=== PATIENT | female | born 1975 | race Caucasian/White ===

== ENCOUNTER 2017-03-07 11:41 | Emergency (ER) | payer OTHER ==
[2017-03-07] MEDS ORDERED: SUBLIMAZE 100 MCG/2 ML IV ONE (12:12)
[2017-03-07] MEDS ORDERED: TORAdol 30 mg Injection IV ONE (12:12)
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
[2017-03-07] MEDS ORDERED: TORAdol 30 mg Injection ONE (12:28)
[2017-03-07] MEDS ORDERED: SUBLIMAZE 100 MCG/2 ML ONE (12:28)
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
[2017-03-07 14:43] VITALS: BP 144/68; PULSE 77; O2SAT 98
== END 2017-03-07 14:42 | disposition home or self-care (01) ==
LOC: ED 11:41
DX: S00.83XA Contusion of other part of head, initial encounter (principal); S10.93XA Contusion of unspecified part of neck, initial encounter; Y04.2XXA Assault by strike against or bumped into by another person, initial encounter
CPT/HCPCS: 36000; 70486; 70491; 71010; 84703; 99283; 99284; J1885; J3010

== ENCOUNTER 2017-03-16 15:31 | Emergency (ER) | payer OTHER ==
[2017-03-16] MEDS ORDERED: PROVENTIL 2.5 MG/3 ML NEB IH ONE ×2 (15:44→15:45)
[2017-03-16] MEDS ORDERED: NORCO 5/325 MG PO ONE (15:45)
[2017-03-16] MEDS ORDERED: NORCO 5/325 MG ONE (15:55)
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
[2017-03-16 16:29] VITALS: BP 150/87; PULSE 76; O2SAT 97
--- NOTE | 2017-03-16 21:56 | XRAY ---
Indication: Left-sided pain following fall one week ago. Comparison: March 07, 2017. PA/lateral chest again demonstrates normal heart and lungs with incidental right apical calcified granuloma. Bony thorax intact.
== END 2017-03-16 16:22 | disposition home or self-care (01) ==
LOC: ED 15:31
DX: S20.02XA Contusion of left breast, initial encounter (principal); W01.0XXA Fall on same level from slipping, tripping and stumbling without subsequent striking against object, initial encounter
CPT/HCPCS: 71020; 94640; 99283; A9270-GY

== ENCOUNTER 2017-05-12 19:57 | Emergency (ER) | payer OTHER ==
[2017-05-12] MEDS ORDERED: Sodium Chloride 0.9% 1000 ML 1,000 ML IV STA (20:42)
[2017-05-12] MEDS ORDERED: Phenergan 25 MG INJ IV ONE (20:42)
[2017-05-12] MEDS ORDERED: Hydromorphone 1 mg/ml Ampule IV ONE ×2 (20:42→22:47)
--- NOTE | 2017-05-12 20:48 | ERPHSYRPT ---
- History of Present Illness Time Seen by Provider: 05/12/17 20:37 Historian: patient Exam Limitations: no limitations Physician History: FOR THE PAST 5 DAYS PT HAS HAD CONSTANT SHARP/THROBBING LOW BACK PAIN, LOWER ABDOMINAL PAIN AND DYSURIA. PT VOMITED X1 LAST NIGHT AND STARTED WITH A SORE THROAT YESTERDAY. LAST BM WAS YESTERDAY & WNL. Allergies/Adverse Reactions: No Known Drug Allergies Allergy (Verified 03/16/17 15:38) Home Medications: No Home Meds [No Home Meds] 1 ea UD 03/16/17 [History] Hx Tetanus, Diphtheria Vaccination/Date Given: Yes Hx Influenza Vaccination/Date Given: No Hx Pneumococcal Vaccination/Date Given: No - Review of Systems Ears, Nose, & Throat: Throat Pain Abdominal/Gastrointestinal: Abdominal Pain, Vomiting Genitourinary Symptoms: Dysuria Musculoskeletal: Back Pain All Other Systems: Reviewed and Negative - Past Medical History Pertinent Past Medical History: Yes Female Reproductive Disorders: Other - Past Surgical History Past Surgical History: No Female Surgical History: Section, Tubal Ligation, Other Other Surgical History: lap exploratory - Social History Smoking Status: Never smoker Exposure to second hand smoke: Yes Drug Use: none Patient Lives Alone: No - Nursing Vital Signs Nursing Vital Signs: Initial Vital Signs Pulse Rate 99 H 05/12/17 21:04 Respiratory Rate 18 05/12/17 21:04 Blood Pressure 170/104 05/12/17 21:04 O2 Sat by Pulse Oximetry 97 05/12/17 21:04 Pain Scale Pain Intensity [Anterior/ 8 Posterior Abdomen] Pain Intensity 7 - Physical Exam General Appearance: alert Eye Exam: PERRL/EOMI Ears, Nose, Throat Exam: TMs normal, pharynx normal, moist mucous membranes Neck Exam: normal inspection Respiratory Exam: lungs clear Cardiovascular Exam: normal heart sounds Gastrointestinal/Abdomen Exam: soft, normal bowel sounds, tenderness (MILD LOWER ABDOMINAL TENDERNESS) Back Exam: normal range of motion, No vertebral tenderness Extremity Exam: normal inspection, No pedal edema Neurologic Exam: alert, cooperative Skin Exam: warm, dry - Course Nursing assessment & vital signs reviewed: Yes - CT Exams Abdomen/Pelvis CT Interpretation: Discussed w/radiologist (NO COMPS. NONOBSTRUCTING LEFT RENAL MICROCALCULUS. MILD RIGHT RENAL HYDRONEPHROSIS & URETER PROMINENCE UP TO 9 MM WITHOUT CALCULUS...POSSIBLY RECENT PASSAGE OF CALCULUS. INCIDENTAL 16 CM SPLENOMEGALY.) Ordered Tests: Active Orders 24 hr Category Date Time Status IV Insertion STAT Care 05/12/17 20:42 Active ABDOMEN AND PELVIS W/0 CONTRAS [CT] Stat Exams 05/12/17 20:43 Taken AMYLASE Stat Lab 05/12/17 21:00 Completed CBC W DIFF Stat Lab 05/12/17 21:00 Completed CMP Stat Lab 05/12/17 21:00 Completed CULTURE,URINE Stat Lab 05/12/17 20:49 Received HCG QUALITATIVE,SERUM Stat Lab 05/12/17 21:00 Completed LIPASE Stat Lab 05/12/17 21:00 Completed MAG [MAGNESIUM] Stat Lab 05/12/17 21:00 Completed UA W/ MICROSCOPIC Stat Lab 05/12/17 20:49 Completed Urine Triage Profile Stat Lab 05/12/17 20:49 Completed Medication Summary Discontinued Medications Generic Name Dose Route Start Last Admin Trade Name Freq PRN Reason Stop Dose Admin Hydromorphone HCl 1 mg 05/12/17 20:42 05/12/17 20:57 Hydromorphone 1 Mg/Ml Ampule IV 05/12/17 20:43 1 mg STAT ONE Administration Hydromorphone HCl Confirm 05/12/17 20:56 Hydromorphone 1 Mg/Ml Ampule Administered 05/12/17 20:57 Dose 1 mg .ROUTE .STK-MED ONE Sodium Chloride 1,000 mls @ 999 mls/hr 05/12/17 20:42 05/12/17 20:57 Sodium Chloride 0.9% 1000 Ml IV 05/12/17 21:42 999 mls/hr .Q1H1M STA Administration Sodium Chloride Confirm 05/12/17 20:56 Sodium Chloride 0.9% 1000 Ml Administered 05/12/17 20:57 Dose 1,000 mls @ ud .ROUTE .STK-MED ONE Promethazine HCl 12.5 mg 05/12/17 20:42 05/12/17 20:57 Phenergan 25 Mg Inj IV 05/12/17 20:43 12.5 mg STAT ONE Administration Promethazine HCl Confirm 05/12/17 20:56 Phenergan 25 Mg Inj Administered 05/12/17 20:57 Dose 25 mg .ROUTE .STK-MED ONE Lab/Rad Data: Laboratory Result Diagrams 05/12/17 21:00 05/12/17 21:00 Laboratory Results 05/12/17 05/12/17 05/12/17 Range/Units 21:00 21:00 21:00 WBC (4.0-10.5) K/mm3 RBC (4.1-5.4) M/mm3 Hgb (12.0-16.0) gm/dl Hct (35-47) % MCV (78-100) fl MCH (26-32) pg MCHC (32-36) g/dl RDW (11.5-14.0) % Plt Count (150-450) K/mm3 MPV (6-9.5) fl Gran % (36.0-66.0) % Lymphocytes % (24.0-44.0) % Monocytes % (0.0-12.0) % Eosinophils % (0.00-5.0) % Basophils % (0.0-0.4) % Basophils # (0-0.4) Sodium 143 (136-145) mEq/L Potassium 3.8 (3.5-5.1) mEq/L Chloride 104 (98-107) mEq/L Carbon Dioxide 30.1 (21-32) mEq/L Anion Gap 12.2 (5-15) MEQ/L BUN 10 (9-20) mg/dL Creatinine 0.79 (0.55-1.30) mg/dl Estimated GFR > 60 ML/MIN Glucose 101 (70-110) MG/DL Calcium 9.7 (8.5-10.1) mg/dL Magnesium 1.8 (1.8-2.4) mg/dL Total Bilirubin 0.30 (0.2-1.0) mg/dL AST 16 (15-37) U/L ALT 18 (12-78) U/L Alkaline Phosphatase 72 (46-116) U/L Serum Total Protein 8.4 H (6.4-8.2) gm/dL Albumin 3.1 L (3.4-5.0) g/dL Amylase 22 L (25-115) U/L Lipase 140 (73-393) U/L Serum , Qual NEGATIVE (Negative) Ur Collection Type Urine Color (YELLOW) Urine Appearance (CLEAR) Urine pH (5-6) Ur Specific [place] (1.005-1.025) Urine Protein (Negative) Urine Ketones (NEGATIVE) Urine Blood (0-5) Ron/ul Urine Nitrite (NEGATIVE) Urine Bilirubin (NEGATIVE) Urine Urobilinogen (0-1) mg/dL Ur Leukocyte Esterase (NEGATIVE) Urine Microscopic WBC (0-5) /HPF Urine Bacteria (NEGATIVE) /HPF Urine Glucose (NEGATIVE) mg/dL Urine Opiates Level (NEGATIVE) Ur Methadone (NEGATIVE) Urine Barbiturates (NEGATIVE) Ur Phencyclidine (PCP) (NEGATIVE) Urine Amphetamine (NEGATIVE) U Benzodiazepine Level (NEGATIVE) Urine Cocaine (NEGATIVE) Urine Marijuana (THC) (NEGATIVE) Specimen Received 05/12/17 05/12/17 05/12/17 Range/Units 21:00 20:49 20:49 WBC 7.7 (4.0-10.5) K/mm3 RBC 4.26 (4.1-5.4) M/mm3 Hgb 11.4 L (12.0-16.0) gm/dl Hct 37.1 (35-47) % MCV 87.1 (78-100) fl MCH 26.7 (26-32) pg MCHC 30.7 L (32-36) g/dl RDW 16.0 H (11.5-14.0) % Plt Count 245 (150-450) K/mm3 MPV 10.2 H (6-9.5) fl Gran % 71.9 H (36.0-66.0) % Lymphocytes % 16.7 L (24.0-44.0) % Monocytes % 10.0 (0.0-12.0) % Eosinophils % 1.0 (0.00-5.0) % Basophils % 0.4 (0.0-0.4) % Basophils # 0.03 (0-0.4) Sodium (136-145) mEq/L Potassium (3.5-5.1) mEq/L Chloride (98-107) mEq/L Carbon Dioxide (21-32) mEq/L Anion Gap (5-15) MEQ/L BUN (9-20) mg/dL Creatinine (0.55-1.30) mg/dl Estimated GFR ML/MIN Glucose (70-110) MG/DL Calcium (8.5-10.1) mg/dL Magnesium (1.8-2.4) mg/dL Total Bilirubin (0.2-1.0) mg/dL AST (15-37) U/L ALT (12-78) U/L Alkaline Phosphatase (46-116) U/L Serum Total Protein (6.4-8.2) gm/dL Albumin (3.4-5.0) g/dL Amylase (25-115) U/L Lipase (73-393) U/L Serum , Qual (Negative) Ur Collection Type CLEAN CATCH Urine Color YELLOW (YELLOW) Urine Appearance SLIGHTLY CLOUDY (CLEAR) Urine pH 6.0 (5-6) Ur Specific [place] 1.010 (1.005-1.025) Urine Protein TRACE (Negative) Urine Ketones NEGATIVE (NEGATIVE) Urine Blood 50 (0-5) Ron/ul Urine Nitrite NEGATIVE (NEGATIVE) Urine Bilirubin NEGATIVE (NEGATIVE) Urine Urobilinogen NORMAL (0-1) mg/dL Ur Leukocyte Esterase 2+ (NEGATIVE) Urine Microscopic WBC 25-50 (0-5) /HPF Urine Bacteria FEW (NEGATIVE) /HPF Urine Glucose NEGATIVE (NEGATIVE) mg/dL Urine Opiates Level NEG. (NEGATIVE) Ur Methadone NEG. (NEGATIVE) Urine Barbiturates NEG. (NEGATIVE) Ur Phencyclidine (PCP) NEG. (NEGATIVE) Urine Amphetamine NEG. (NEGATIVE) U Benzodiazepine Level NEG. (NEGATIVE) Urine Cocaine NEG. (NEGATIVE) Urine Marijuana (THC) POS. (NEGATIVE) Specimen Received [id number] - Departure Time of Disposition: 22:46 Departure Disposition: Home Clinical Impression: BACK PAIN, ABDOMINAL PAIN, UTI Condition: Stable Critical Care Time: No Referrals: DOCTOR,NO FAMILY [Primary Care Provider] - Instructions: Low Back Pain, Abdominal Pain-Adult, Urinary Tract Infection (UTI ) Additional Instructions: FOLLOW UP WITH PRIVATE DOCTOR TOMORROW. Prescriptions: Naproxen [Naprosyn] 500 mg PO [id number] PRN #20 tablet PRN Reason: Pain Smz/Tmp Ds Tablet [Bactrim Ds Tablet] 1 udtab PO BID #20 tablet
[2017-05-12] MEDS ORDERED: Hydromorphone 1 mg/ml Ampule ONE ×2 (20:56→22:51)
[2017-05-12] MEDS ORDERED: Phenergan 25 MG INJ ONE (20:56)
[2017-05-12] MEDS ORDERED: Sodium Chloride 0.9% 1000 ML 1,000 ML ONE (20:56)
[2017-05-12 21:05] LABS: Collection Type CLEAN CATCH; Leukocyte Esterase 2+ (NEGATIVE)
[2017-05-12 21:05] LABS: BASOPHIL % 0.4 % (0.0-0.4); Granulocytes % 71.9 % (36.0-66.0); Lymphocytes % 16.7 % (24.0-44.0); Mean Cell Volume 87.1 fl (78-100); Mean Platelet Volume 10.2 fl (6-9.5); Platelet Count 245 K/mm3 (150-450); Red Blood Count 4.26 M/mm3 (4.1-5.4); White Blood Count 7.7 K/mm3 (4.0-10.5)
[2017-05-12 21:06] LABS: Bilirubin NEGATIVE (NEGATIVE); Blood 50 Ery/ul (0-5); COMPLETE URINE MICROSCOPIC? YES; Glucose NEGATIVE (NEGATIVE); WBC 25-50 /HPF (0-5)
[2017-05-12 21:07] LABS: ADD URINE CULTURE? YES (NO); Bacteria FEW /HPF (NEGATIVE)
[2017-05-12 21:08] LABS: Mean Corpuscular Hemoglobin 26.7 pg (26-32)
[2017-05-12 21:27] LABS: ALBUMIN 3.1 g/dL (3.4-5.0); ALKALINE PHOSPHATASE 72 U/L (46-116); ANION GAP 12.2 MEQ/L (5-15); BLOOD UREA NITROGEN 10 mg/dL (9-20); CHLORIDE 104 mEq/L (98-107); Carbon Dioxide 30.1 mEq/L (21-32); Glucose 101 MG/DL (70-110); LIPASE 140 U/L (73-393); Potassium 3.8 mEq/L (3.5-5.1); SGOT/AST 16 U/L (15-37); SGPT/ALT 18 U/L (12-78); SODIUM 143 mEq/L (136-145); Total Protein 8.4 gm/dL (6.4-8.2)
[2017-05-12] MEDS ORDERED: ROCEPHIN 1 Gm-D5w 50 ml Bag** 1 G/50 ML IVPB IV STA (22:47)
[2017-05-12] MEDS ORDERED: ROCEPHIN 1 Gm-D5w 50 ml Bag** 1 G/50 ML IVPB IV ONE (22:51)
[2017-05-12 23:36] VITALS: BP 132/78; PULSE 76; O2SAT 98
--- NOTE | 2017-05-13 08:41 | XRAY ---
Indication: Bilateral back pain radiating into pelvis. Burning sensation after urination. Multiple contiguous axial images obtained through the abdomen and pelvis without contrast using renal stone protocol. Comparison: None Lung bases demonstrates minimal bibasilar dependent atelectasis. Heart is not enlarged. Now starting punctate left renal calculus. Right kidney appears mildly hydronephrotic. Right ureter is also prominent up to 9 mm without calculus. Findings can be seen with recent passage of calculus. Spleen is enlarged measuring 16 cm in greatest axial dimension. Previous cholecystectomy. Tiny uterine fundal calcification presumed calcified fibroid. Remaining liver, pancreas, spleen, adrenal glands, kidneys, ureters, bladder, uterus, and aorta appear unremarkable for noncontrast exam. Osseous structures intact. Impression: 1. Right renal hydronephrosis and ureteral prominence without calculus. Findings can be seen with recent passage of calculus. Nonobstructing left renal micro-calculus. 2. Incidental splenomegaly and tiny uterine calcified fibroid. CT DI 23.63
== END 2017-05-12 23:37 | disposition home or self-care (01) ==
LOC: ED 19:57
DX: M54.9 Dorsalgia, unspecified (principal); R10.9 Unspecified abdominal pain; N39.0 Urinary tract infection, site not specified
CPT/HCPCS: 36000; 36415; 74176; 80053; 80307; 81000; 82150; 83690; 83735; 84703; 85025; 87077; 87086; 87186; 96360; 96365; 96374; 96375; 96376; 99284; J0696; J1170; J2550

== ENCOUNTER 2018-12-13 21:05 | Emergency (ER) | payer OTHER ==
[2018-12-13] MEDS ORDERED: Sodium Chloride 0.9% 1000 ML 1,000 ML ONE (23:04)
[2018-12-13 23:21] LABS: BASOPHIL % 0.2 % (0.0-0.4); Basophil (Absolute #) 0.01 (0-0.4); Eosinophil % 2.5 % (0.00-5.0); Eosinophil (Absolute #) 0.13 (0-0.5); Granulocyte Absolute (ANC) 2.74 (1.4-6.9); Granulocytes % 52.3 % (36.0-66.0); Hematocrit 33.1 % (35-47); Hemoglobin 10.8 gm/dl (12.0-16.0); Lymphocyte (Absolute #) 1.96 (1.0-4.6); Lymphocytes % 37.5 % (24.0-44.0); Mean Corpuscular Hgb Concent. 32.6 g/dl (32-36); Mean Platelet Volume 9.7 fl (6-9.5); Monocyte (Absolute #) 0.39 (0.0-1.3); Monocytes % 7.5 % (0.0-12.0); Platelet Count 238 K/mm3 (150-450); Red Blood Count 3.72 M/mm3 (4.1-5.4); Red Cell Distribution Width 14.3 % (11.5-14.0); White Blood Count 5.2 K/mm3 (4.0-10.5)
[2018-12-13 23:29] LABS: INR 0.96 (0.8-3.0); PROTIME 11.2 SECONDS (9.95-12.35)
[2018-12-13 23:32] LABS: PTT 26.8 SECONDS (25.3-37.0)
[2018-12-13] MEDS ORDERED: TORAdol 30 mg Injection IV ONE (23:33)
[2018-12-13 23:35] LABS: ALBUMIN 4.3 g/dL (3.5-5.0); ALKALINE PHOSPHATASE 60 U/L (38-126); AMYLASE 44 U/L (30-110); ANION GAP 13.8 MEQ/L (5-15); BLOOD UREA NITROGEN 15 mg/dL (7-17); CHLORIDE 104 mmol/L (98-107); Calcium 9.5 mg/dL (8.4-10.2); Carbon Dioxide 25 mmol/L (22-30); Creatinine 1 0.71 mg/dL (0.52-1.04); Glucose 90 mg/dL (74-106); LIPASE 92 U/L (23-300); Potassium 3.8 mmol/L (3.5-5.1); SGOT/AST 17 U/L (14-36); SGPT/ALT 10 U/L (0-35); SODIUM 139 mmol/L (137-145); Total Protein 8.1 g/dL (6.3-8.2)
--- NOTE | 2018-12-13 23:36 | ERPHSYRPT ---
- History of Present Illness Time Seen by Provider: 12/13/18 23:34 Historian: patient Exam Limitations: no limitations Patient Subjective Stated Complaint: pt states she has been having heavy vaginal bleeding with large clots and pain for 1 month. diarhea for 1 month. generalized aches and pain for 1 month. swelling in bilat lower ext for 2 days. Triage Nursing Assessment: pt alert and oreinted, asnwers questions approp. pt ambulatory with steady gait noted. respirations nonlabored with lungs cta. pt retles in bed. abd soft, nontender to light palpation. bowel sond present x4 quads. Physician History: 43-year-old white female arrives with complaint of vaginal bleeding for a month she also states she's been having lower abdominal pain for a month no nausea no vomiting she states she feels like her legs are swelling patient does have a history of chronic hip pain, Past medical history includes right foot fracture, ovarian cyst, Past surgical history includes and laparoscopy, tubal ligation, Timing/Duration: other (symptoms for a month) Activities at Onset: none Quality: aching, cramping Abdominal Pain Onset Location: suprapubic Severity of Pain-Max: moderate Severity of Pain-Current: moderate Modifying Factors: Improves With: nothing Associated Symptoms: No back, No chest pain, No diaphoresis, No diarrhea, No fever/chills, No fatigue, No headache, No heartburn, No loss of appetite, No nausea, No neck pain, No rash, No shortness of breath, No syncope, No vomiting, No weakness Previous symptoms: no prior history Allergies/Adverse Reactions: No Known Drug Allergies Allergy (Verified 12/13/18 22:35) Hx Tetanus, Diphtheria Vaccination/Date Given: Yes Hx Influenza Vaccination/Date Given: No Hx Pneumococcal Vaccination/Date Given: No Immunizations Up to Date: Yes - Review of Systems Constitutional: No Fever, No Chills Eyes: No Symptoms Ears, Nose, & Throat: No Symptoms Respiratory: No Cough, No Dyspnea Cardiac: No Chest Pain, No Edema, No Syncope Abdominal/Gastrointestinal: Abdominal Pain, No Nausea, No Vomiting, No Diarrhea , No Constipation, No Hematemesis, No Hematochezia, No Melena, No Dysphagia, No Appetite Changes Genitourinary Symptoms: Menorrhagia, No Dysuria, No Frequency, No Hematuria, No Hesitancy, No Incontinence, No Urgency Musculoskeletal: No Back Pain, No Neck Pain Skin: No Rash Neurological: No Dizziness, No Focal Weakness, No Sensory Changes Psychological: No Symptoms Endocrine: No Symptoms All Other Systems: Reviewed and Negative - Past Medical History Pertinent Past Medical History: Yes Neurological History: No Pertinent History Cardiac History: No Pertinent History, Hypertension Respiratory History: No Pertinent History Endocrine Medical History: No Pertinent History Female Reproductive Disorders: Other Other Medical History: HX FX RIGHT FOOT - NO SX. OVARIAN CYSTS - Past Surgical History Past Surgical History: Yes Female Surgical History: Section, Tubal Ligation, Other Other Surgical History: lap exploratory - Social History Smoking Status: Former smoker Exposure to second hand smoke: Yes Drug Use: none Patient Lives Alone: No - Female History Hx Last Menstrual Period: current Hx Now: No - Nursing Vital Signs Nursing Vital Signs: Initial Vital Signs Temperature 98.2 F 12/13/18 22:29 Pulse Rate 89 12/13/18 22:29 Respiratory Rate 20 12/13/18 22:29 Blood Pressure 139/80 12/13/18 22:29 O2 Sat by Pulse Oximetry 98 12/13/18 22:29 Pain Scale Pain Intensity 7 - Physical Exam General Appearance: no apparent distress, mild distress, alert Eye Exam: PERRL/EOMI, eyes nml inspection Ears, Nose, Throat Exam: normal ENT inspection, pharynx normal, moist mucous membranes Neck Exam: normal inspection (he started to settle down had), non-tender, supple , full range of motion Respiratory Exam: normal breath sounds, lungs clear, No respiratory distress Cardiovascular Exam: regular rate/rhythm, normal heart sounds, capillary refill <2 sec Gastrointestinal/Abdomen Exam: soft, tenderness (suprapubic tenderness), No mass Back Exam: normal inspection, normal range of motion, No CVA tenderness, No vertebral tenderness Extremity Exam: normal inspection, normal range of motion, pelvis stable Neurologic Exam: alert, oriented x 3, cooperative, belt molder II-XII nml as tested, normal mood/affect, nml cerebellar function, sensation nml, No motor deficits Skin Exam: normal color, warm, dry SpO2 Interpretation: normal (98%) SpO2: 98 - Course Nursing assessment & vital signs reviewed: Yes - CT Exams Abdomen/Pelvis CT Interpretation: Tele-radiologist Report (CT abdomen and pelvis: Impression 1. Left ovarian cyst 2.1 cm and an involuting follicle or cyst of the right ovary measuring 1.4 cm.2. There is mild colonic diverticulosis without evidence for acute diverticulitis) Ordered Tests: Active Orders 24 hr Category Date Time Status IV Insertion STAT Care 12/13/18 22:54 Active ABDOMEN AND PELVIS W CONTRAST [CT] Stat Exams 12/14/18 01:58 Taken AMYLASE Stat Lab 12/13/18 22:54 Completed CBC W DIFF Stat Lab 12/13/18 22:54 Completed CMP Stat Lab 12/13/18 22:54 Completed LIPASE Stat Lab 12/13/18 22:54 Completed NT PRO BNP Stat Lab 12/13/18 22:55 Completed PROTIME WITH INR Stat Lab 12/13/18 22:55 Completed PTT Stat Lab 12/13/18 22:55 Completed UA W/RFX UR CULTURE Stat Lab 12/14/18 00:15 Completed Urine Triage Profile Stat Lab 12/14/18 00:15 Completed Medication Summary Generic Name Dose Route Start Last Admin Trade Name Freq PRN Reason Stop Dose Admin Sodium Chloride 1,000 mls @ 100 mls/hr 12/13/18 23:00 12/14/18 01:35 Sodium Chloride 0.9% 1000 Ml IV 01/12/19 22:59 100 mls/hr .Q10H CHELLE Administration Discontinued Medications Generic Name Dose Route Start Last Admin Trade Name Freq PRN Reason Stop Dose Admin Ketorolac Tromethamine 30 mg 12/13/18 23:33 12/13/18 23:47 Toradol 30 Mg Injection IV 12/13/18 23:34 30 mg STAT ONE Administration Ketorolac Tromethamine Confirm 12/13/18 23:41 Toradol 30 Mg Injection Administered 12/13/18 23:42 Dose 30 mg .ROUTE .[employer] ONE Lab/Rad Data: Laboratory Result Diagrams 12/13/18 22:54 12/13/18 22:54 Laboratory Results 12/14/18 12/14/18 12/13/18 Range/Units 00:15 00:15 Unknown WBC (4.0-10.5) K/mm3 RBC (4.1-5.4) M/mm3 Hgb (12.0-16.0) gm/dl Hct (35-47) % MCV (78-100) fl MCH (26-32) pg MCHC (32-36) g/dl RDW (11.5-14.0) % Plt Count (150-450) K/mm3 MPV (6-9.5) fl Gran % (36.0-66.0) % Eos # (Auto) (0-0.5) Absolute Lymphs (auto) (1.0-4.6) Absolute Monos (auto) (0.0-1.3) Lymphocytes % (24.0-44.0) % Monocytes % (0.0-12.0) % Eosinophils % (0.00-5.0) % Basophils % (0.0-0.4) % Absolute Granulocytes (1.4-6.9) Basophils # (0-0.4) PT (9.95-12.35) SECONDS INR (0.8-3.0) APTT (25.3-37.0) SECONDS Sodium (137-145) mmol/L Potassium (3.5-5.1) mmol/L Chloride (98-107) mmol/L Carbon Dioxide (22-30) mmol/L Anion Gap (5-15) MEQ/L BUN (7-17) mg/dL Creatinine (0.52-1.04) mg/dL Estimated GFR ML/MIN Glucose (74-106) mg/dL Calcium (8.4-10.2) mg/dL Total Bilirubin (0.2-1.3) mg/dL AST (14-36) U/L ALT (0-35) U/L Alkaline Phosphatase (38-126) U/L NT-Pro-B Natriuret Pep (0-450) pg/mL Serum Total Protein (6.3-8.2) g/dL Albumin (3.5-5.0) g/dL Amylase (30-110) U/L Lipase (23-300) U/L Serum , Qual NEGATIVE (Negative) Urine Color YELLOW (YELLOW) Urine Appearance SLIGHTLY CLOUDY (CLEAR) Urine pH 5.0 (5-6) Ur Specific [place] 1.017 (1.005-1.025) Urine Protein NEGATIVE (Negative) Urine Ketones NEGATIVE (NEGATIVE) Urine Blood NEGATIVE (0-5) Ron/ul Urine Nitrite NEGATIVE (NEGATIVE) Urine Bilirubin NEGATIVE (NEGATIVE) Urine Urobilinogen NEGATIVE (0-1) mg/dL Ur Leukocyte Esterase NEGATIVE (NEGATIVE) Urine WBC (Auto) NONE (0-5) /HPF Urine RBC (Auto) NONE (0-2) /HPF U Hyaline Cast (Auto) 0-2 (0-2) /LPF U Epithel Cells (Auto) RARE (FEW) /HPF Urine Bacteria (Auto) NONE (NEGATIVE) /HPF Urine Mucus (Auto) SLIGHT (NEGATIVE) /HPF Urine Culture Reflexed NO (NO) Urine Glucose NEGATIVE (NEGATIVE) mg/dL Urine Opiates Level POSITIVE (NEGATIVE) Ur Methadone NEGATIVE (NEGATIVE) Urine Barbiturates NEGATIVE (NEGATIVE) Ur Phencyclidine (PCP) NEGATIVE (NEGATIVE) Urine Amphetamine POSITIVE (NEGATIVE) U Benzodiazepine Level POSITIVE (NEGATIVE) Urine Cocaine NEGATIVE (NEGATIVE) Urine Marijuana (THC) NEGATIVE (NEGATIVE) 12/13/18 12/13/18 12/13/18 Range/Units 22:55 22:55 22:54 WBC (4.0-10.5) K/mm3 RBC (4.1-5.4) M/mm3 Hgb (12.0-16.0) gm/dl Hct (35-47) % MCV (78-100) fl MCH (26-32) pg MCHC (32-36) g/dl RDW (11.5-14.0) % Plt Count (150-450) K/mm3 MPV (6-9.5) fl Gran % (36.0-66.0) % Eos # (Auto) (0-0.5) Absolute Lymphs (auto) (1.0-4.6) Absolute Monos (auto) (0.0-1.3) Lymphocytes % (24.0-44.0) % Monocytes % (0.0-12.0) % Eosinophils % (0.00-5.0) % Basophils % (0.0-0.4) % Absolute Granulocytes (1.4-6.9) Basophils # (0-0.4) PT 11.2 (9.95-12.35) SECONDS INR 0.96 (0.8-3.0) APTT 26.8 (25.3-37.0) SECONDS Sodium 139 (137-145) mmol/L Potassium 3.8 (3.5-5.1) mmol/L Chloride 104 (98-107) mmol/L Carbon Dioxide 25 (22-30) mmol/L Anion Gap 13.8 (5-15) MEQ/L BUN 15 (7-17) mg/dL Creatinine 0.71 (0.52-1.04) mg/dL Estimated GFR > 60.0 ML/MIN Glucose 90 (74-106) mg/dL Calcium 9.5 (8.4-10.2) mg/dL Total Bilirubin 0.40 (0.2-1.3) mg/dL AST 17 (14-36) U/L ALT 10 (0-35) U/L Alkaline Phosphatase 60 (38-126) U/L NT-Pro-B Natriuret Pep 55.3 (0-450) pg/mL Serum Total Protein 8.1 (6.3-8.2) g/dL Albumin 4.3 (3.5-5.0) g/dL Amylase 44 (30-110) U/L Lipase 92 (23-300) U/L Serum , Qual (Negative) Urine Color (YELLOW) Urine Appearance (CLEAR) Urine pH (5-6) Ur Specific [place] (1.005-1.025) Urine Protein (Negative) Urine Ketones (NEGATIVE) Urine Blood (0-5) Ron/ul Urine Nitrite (NEGATIVE) Urine Bilirubin (NEGATIVE) Urine Urobilinogen (0-1) mg/dL Ur Leukocyte Esterase (NEGATIVE) Urine WBC (Auto) (0-5) /HPF Urine RBC (Auto) (0-2) /HPF U Hyaline Cast (Auto) (0-2) /LPF U Epithel Cells (Auto) (FEW) /HPF Urine Bacteria (Auto) (NEGATIVE) /HPF Urine Mucus (Auto) (NEGATIVE) /HPF Urine Culture Reflexed (NO) Urine Glucose (NEGATIVE) mg/dL Urine Opiates Level (NEGATIVE) Ur Methadone (NEGATIVE) Urine Barbiturates (NEGATIVE) Ur Phencyclidine (PCP) (NEGATIVE) Urine Amphetamine (NEGATIVE) U Benzodiazepine Level (NEGATIVE) Urine Cocaine (NEGATIVE) Urine Marijuana (THC) (NEGATIVE) 12/13/18 Range/Units 22:54 WBC 5.2 (4.0-10.5) K/mm3 RBC 3.72 L (4.1-5.4) M/mm3 Hgb 10.8 L (12.0-16.0) gm/dl Hct 33.1 L (35-47) % MCV 89.0 (78-100) fl MCH 29.0 (26-32) pg MCHC 32.6 (32-36) g/dl RDW 14.3 H (11.5-14.0) % Plt Count 238 (150-450) K/mm3 MPV 9.7 H (6-9.5) fl Gran % 52.3 (36.0-66.0) % Eos # (Auto) 0.13 (0-0.5) Absolute Lymphs (auto) 1.96 (1.0-4.6) Absolute Monos (auto) 0.39 (0.0-1.3) Lymphocytes % 37.5 (24.0-44.0) % Monocytes % 7.5 (0.0-12.0) % Eosinophils % 2.5 (0.00-5.0) % Basophils % 0.2 (0.0-0.4) % Absolute Granulocytes 2.74 (1.4-6.9) Basophils # 0.01 (0-0.4) PT (9.95-12.35) SECONDS INR (0.8-3.0) APTT (25.3-37.0) SECONDS Sodium (137-145) mmol/L Potassium (3.5-5.1) mmol/L Chloride (98-107) mmol/L Carbon Dioxide (22-30) mmol/L Anion Gap (5-15) MEQ/L BUN (7-17) mg/dL Creatinine (0.52-1.04) mg/dL Estimated GFR ML/MIN Glucose (74-106) mg/dL Calcium (8.4-10.2) mg/dL Total Bilirubin (0.2-1.3) mg/dL AST (14-36) U/L ALT (0-35) U/L Alkaline Phosphatase (38-126) U/L NT-Pro-B Natriuret Pep (0-450) pg/mL Serum Total Protein (6.3-8.2) g/dL Albumin (3.5-5.0) g/dL Amylase (30-110) U/L Lipase (23-300) U/L Serum , Qual (Negative) Urine Color (YELLOW) Urine Appearance (CLEAR) Urine pH (5-6) Ur Specific [place] (1.005-1.025) Urine Protein (Negative) Urine Ketones (NEGATIVE) Urine Blood (0-5) Ron/ul Urine Nitrite (NEGATIVE) Urine Bilirubin (NEGATIVE) Urine Urobilinogen (0-1) mg/dL Ur Leukocyte Esterase (NEGATIVE) Urine WBC (Auto) (0-5) /HPF Urine RBC (Auto) (0-2) /HPF U Hyaline Cast (Auto) (0-2) /LPF U Epithel Cells (Auto) (FEW) /HPF Urine Bacteria (Auto) (NEGATIVE) /HPF Urine Mucus (Auto) (NEGATIVE) /HPF Urine Culture Reflexed (NO) Urine Glucose (NEGATIVE) mg/dL Urine Opiates Level (NEGATIVE) Ur Methadone (NEGATIVE) Urine Barbiturates (NEGATIVE) Ur Phencyclidine (PCP) (NEGATIVE) Urine Amphetamine (NEGATIVE) U Benzodiazepine Level (NEGATIVE) Urine Cocaine (NEGATIVE) Urine Marijuana (THC) (NEGATIVE) - Progress Progress: improved Progress Note: 12/14/18 03:26 43-year-old white female arrives with complaint of vaginal bleeding for a month she also states she's had lower abdominal pain accompanied by diarrhea as well for a month Patient's CT of the abdomen remarkable for a left ovarian cyst 2.1 cm also an involuting follicle or cyst on the right ovary measuring 1.4 cm there is mild colonic diverticulosis without evidence for acute diverticulitis patient was urine drug screen positive for amphetamines, benzodiazepines, cocaine, patient hCG is negative patient's BNP is normal at 55.3 CMP is normal INR 0.96 PT 11.2 PTT 26.8 CBC White blood cell 5.2 hemoglobin 10.8 hematocrit 33.1 platelets 238. Patient is given IV normal saline she is also given Toradol patient appears to be stable will have patient follow-up with her family doctor impression 1. Menorrhagia. 2. Abdominal pain. Will offer patient Naprosyn or have take patient take Motrin for pain. Will avoid any narcotic analgesia due to urine drug screen results, - Departure Departure Disposition: Home Clinical Impression: Abdominal pain Qualifiers: Abdominal location: lower abdomen, unspecified Qualified Code(s): R10.30 - Lower abdominal pain, unspecified Ovarian cyst Qualifiers: Laterality: bilateral Qualified Code(s): N83.201 - Unspecified ovarian cyst, right side; N83.202 - Unspecified ovarian cyst, left side Menorrhagia Qualifiers: Menorrahagia type: with irregular cycle Qualified Code(s): N92.1 - Excessive and frequent menstruation with irregular cycle Condition: Fair Critical Care Time: No Referrals: HERMINIO HONEYCUTT NP [Primary Care Provider] - Additional Instructions: Return home. Avoid illicit substances. Plenty of fluids. You have bilateral ovarian cysts. Follow-up with your family doctor. Naprosyn 500 mg orally twice a day with food as needed for pain. Return for acute distress or for severe symptoms. Prescriptions: Naproxen 500 mg [Naprosyn 500 MG] 500 mg PO BIDPRN PRN #10 tablet PRN Reason: Pain
[2018-12-13] MEDS ORDERED: TORAdol 30 mg Injection ONE (23:41)
[2018-12-13] MEDS: Sodium Chloride 0.9% 1000 ML 1,000 ML IV SCH (23:44)
[2018-12-14 00:55] LABS: Appearance SLIGHTLY CLOUDY (CLEAR); Bilirubin NEGATIVE (NEGATIVE); Blood NEGATIVE Ery/ul (0-5); Epithelial Cells RARE /HPF (FEW); Glucose NEGATIVE (NEGATIVE); Hyaline Casts 0-2 /LPF (0-2); Ketones NEGATIVE (NEGATIVE); Leukocyte Esterase NEGATIVE (NEGATIVE); Mucus SLIGHT /HPF (NEGATIVE); Nitrite NEGATIVE (NEGATIVE); Protein,Urine Dip NEGATIVE (Negative); Specific Gravity 1.017 (1.005-1.025); Urobilinogen NEGATIVE mg/dL (0-1)
[2018-12-14 01:08] LABS: Barbiturate,Urine NEGATIVE (NEGATIVE); Benzodiazepine,Urine POSITIVE (NEGATIVE); Cocaine,Urine NEGATIVE (NEGATIVE); Methadone,Urine NEGATIVE (NEGATIVE); Opiate,Urine POSITIVE (NEGATIVE); PCP,Urine NEGATIVE (NEGATIVE); THC,Urine NEGATIVE (NEGATIVE)
[2018-12-14] MEDS: Sodium Chloride 0.9% 1000 ML 1,000 ML IV SCH (01:35)
[2018-12-14] MEDS ORDERED: Sodium Chloride 0.9% 1000 ML 1,000 ML ONE (01:38)
[2018-12-14 02:05] LABS: Amphetamine,Urine POSITIVE (NEGATIVE)
[2018-12-14 02:22] VITALS: PULSE 76
[2018-12-14 03:53] VITALS: BP 107/82; O2SAT 96
[2018-12-14 04:28] LABS: CHLAMYDIA URINE NEGATIVE (NEGATIVE); GC URINE NEGATIVE (NEGATIVE)
--- NOTE | 2018-12-14 08:50 | XRAY ---
Indication: Lower abdomen pain and diarrhea. Heavy vaginal bleeding. Multiple contiguous axial images obtained through the abdomen and pelvis using 80 cc Isovue 370 contrast only. Comparison: May 12, 2017. Lung bases again demonstrates minimal bibasilar dependent atelectasis. No infiltrate or effusion. Heart is not enlarged. Noncontrasted stomach and bowel loops appear nonobstructed. Normal appendix. There is now mild diffuse scattered colonic fecal debris throughout. Again cholecystectomy. Mild scattered fecal debris in the ascending and transverse colon. No free fluid/air. Again hepatosplenomegaly with liver today measuring 20.5 cm and spleen measuring 15.7 cm. There remains a few calcified splenic granuloma. New 2.4 cm left ovary cyst. Tampon in situ. Remaining liver, pancreas, spleen, adrenal glands, kidneys, ureters, bladder, and uterus appear unremarkable. Aorta normal in course and caliber. Stable small periaortic lymph nodes, none pathologically enlarged. Osseous with minimal degenerative changes throughout the spine. No ventral or inguinal hernias. Impression: 1. New fecal stasis without obstruction. 2. Stable hepatosplenomegaly. 3. New 2.4 cm left ovary cyst. 4. No acute intra-abdominal/pelvic abnormalities. Comment: Preliminary interpretation was made by [facility]. No critical discrepancy. CT DI 21.04
== END 2018-12-14 04:00 | disposition home or self-care (01) ==
LOC: ED 21:05
DX: R10.30 Lower abdominal pain, unspecified (principal); N83.201 Unspecified ovarian cyst, right side; N92.1 Excessive and frequent menstruation with irregular cycle; I10 Essential (primary) hypertension
CPT/HCPCS: 36000; 36415; 74177; 80053; 80307; 81001; 81025; 82150; 83690; 83880; 85025; 85610; 85730; 87491; 87591; 96360; 96361; 96374; 99284; J1885

== ENCOUNTER 2021-12-12 08:05 | Day surgery (SDC) | payer OTHER ==
[2021-12-12] MEDS ORDERED: Depo-Medrol 40 MG/ML IM ONE (08:06)
[2021-12-12] MEDS ORDERED: BUPIVACAINE 0.5% VIAL IJ ONE (08:06)
[2021-12-12] MEDS ORDERED: Lactated Ringers 1,000 ML IV ONE (09:22)
[2021-12-12] MEDS ORDERED: Xylocaine-Mpf 2% 5 Ml Vial ONE (09:49)
[2021-12-12] MEDS ORDERED: DIPRIVAN 200 MG/20 ML IV ONE ×2 (09:50→09:58)
--- NOTE | 2021-12-12 11:40 | XRAY ---
Indication: Bilateral hip injection. Intraoperative fluoroscopy provided for 42 seconds. 3 digital spot image submitted for interpretation demonstrates needle tip projecting lateral to the left and right femur necks. Small amount of contrast injected for needle tip placement. Correlate with intraoperative findings/report.
--- NOTE | 2021-12-12 11:42 | XRAY ---
42 seconds fluoroscopy time in surgery for bilateral hip injections.
== END 2021-12-12 10:18 | disposition home or self-care (01) ==
LOC: SDC-PAIN 08:05
PROVIDERS: ATTEND Psychiatry & Neurology Pain Medicine
DX: M16.0 Bilateral primary osteoarthritis of hip (principal); E11.9 Type 2 diabetes mellitus without complications; Z79.899 Other long term (current) drug therapy
CPT/HCPCS: 20610; 73521; 77002; 82947; 84703; J1030; J2704; Q9966

== ENCOUNTER 2022-05-01 09:02 | Day surgery (SDC) | payer OTHER ==
[2022-05-01] MEDS ORDERED: BUPIVACAINE 0.5% VIAL IJ ONE (09:03)
[2022-05-01] MEDS ORDERED: Depo-Medrol 40 MG/ML IM ONE (09:03)
[2022-05-01] MEDS ORDERED: DIPRIVAN 200 MG/20 ML IV ONE (10:30)
[2022-05-01] MEDS ORDERED: Lactated Ringers 1,000 ML IV ONE (14:27)
--- NOTE | 2022-05-01 18:28 | XRAY ---
Indication: Bilateral hip injection. Intraoperative fluoroscopy provided for 22 seconds. 2 digital spot image submitted for interpretation demonstrates needle tip projecting lateral to the left and right femur necks. Small amount of contrast injected for needle tip placement. Correlate with intraoperative findings/report.
--- NOTE | 2022-05-01 18:33 | XRAY ---
22 seconds of fluoroscopy was used in surgery for bilateral intra-articular hip injections.
== END 2022-05-01 10:55 | disposition home or self-care (01) ==
LOC: SDC-PAIN 09:02
PROVIDERS: ATTEND Psychiatry & Neurology Pain Medicine
DX: M16.0 Bilateral primary osteoarthritis of hip (principal); Z79.899 Other long term (current) drug therapy
CPT/HCPCS: 20610; 73521; 77002; 81025; J1030; J2704; Q9966

== ENCOUNTER 2022-10-16 10:26 | Day surgery (SDC) | payer OTHER ==
[2022-10-16] MEDS ORDERED: Sodium Chloride 0.9(Preservative Free) 10 ML IJ ONE (10:27)
[2022-10-16] MEDS ORDERED: Depo-Medrol 40 MG/ML IM ONE (10:27)
[2022-10-16] MEDS ORDERED: Versed 2 MG/2 ML Injection ONE (12:00)
[2022-10-16] MEDS ORDERED: DIPRIVAN 200 MG/20 ML IV ONE ×2 (12:41→12:45)
[2022-10-16] MEDS ORDERED: Lactated Ringers 1,000 ML IV ONE (14:27)
--- NOTE | 2022-10-16 16:50 | XRAY ---
Indication: Right L3-L5 transforaminal FERNIE. Intraoperative fluoroscopy provided for 30 seconds. 5 digital spot image submitted for interpretation demonstrates posterior needle tips projecting over the expected right L3 and L4 nerve roots. Small amount of contrast injected for needle tip placement. Correlate with intraoperative findings/report.
--- NOTE | 2022-10-17 08:39 | XRAY ---
30 seconds of fluoroscopy was used in surgery for a right L3-L5 transforaminal FERNIE.
== END 2022-10-16 13:12 | disposition home or self-care (01) ==
LOC: SDC-PAIN 10:26
PROVIDERS: ATTEND Psychiatry & Neurology Pain Medicine
DX: M54.16 Radiculopathy, lumbar region (principal); E11.9 Type 2 diabetes mellitus without complications; Z79.899 Other long term (current) drug therapy
CPT/HCPCS: 64483; 64484; 72100; 77003; 81025; J1030; J2250; J2704; Q9966

== ENCOUNTER 2023-01-08 10:17 | Day surgery (SDC) | payer OTHER ==
[2023-01-08] MEDS ORDERED: BUPIVACAINE 0.5% VIAL IJ ONE (10:18)
[2023-01-08] MEDS ORDERED: Depo-Medrol 40 MG/ML IM ONE (10:18)
[2023-01-08 10:59] LABS: HCG URINE TEST NEGATIVE (NEGATIVE)
[2023-01-08] MEDS ORDERED: Versed 2 MG/2 ML Injection ONE (11:34)
[2023-01-08] MEDS ORDERED: DIPRIVAN 200 MG/20 ML IV ONE (12:26)
--- NOTE | 2023-01-08 13:51 | XRAY ---
Indication: Right L5-S1 transforaminal FERNIE. Intraoperative fluoroscopy provided for 18 seconds. 2 digital spot image submitted for interpretation demonstrates posterior needle tip projecting over the expected right L5 nerve root. Small amount of contrast injected for needle tip placement. Correlate with intraoperative findings/report.
[2023-01-08] MEDS ORDERED: Lactated Ringers 1,000 ML IV ONE (15:21)
== END 2023-01-08 13:00 | disposition home or self-care (01) ==
LOC: SDC-PAIN 10:17
PROVIDERS: ATTEND Psychiatry & Neurology Pain Medicine
DX: M54.16 Radiculopathy, lumbar region (principal); Z79.899 Other long term (current) drug therapy
CPT/HCPCS: 64483; 72100; 77003; 81025; J1030; J2250; J2704; Q9966

== ENCOUNTER 2023-03-12 10:40 | Day surgery (SDC) | payer OTHER ==
[2023-03-12] MEDS ORDERED: Depo-Medrol 40 MG/ML IM ONE (10:41)
[2023-03-12] MEDS ORDERED: BUPIVACAINE 0.5% VIAL IJ ONE (10:41)
[2023-03-12 11:11] LABS: HCG URINE TEST NEGATIVE (NEGATIVE)
[2023-03-12] MEDS ORDERED: Versed 2 MG/2 ML Injection ONE (11:33)
[2023-03-12] MEDS ORDERED: DIPRIVAN 200 MG/20 ML IV ONE ×2 (12:34→12:42)
[2023-03-12] MEDS ORDERED: Lactated Ringers 1,000 ML IV ONE (12:47)
--- NOTE | 2023-03-12 14:06 | XRAY ---
29 seconds of fluoroscopy was used in surgery for a bilateral intra-articular hip and right greater trochanteric bursa injection.
--- NOTE | 2023-03-12 14:07 | XRAY ---
Indication: Bilateral hip and right greater trochanter bursa injection. Intraoperative fluoroscopy provided for 29 seconds. 3 digital spot image submitted for interpretation demonstrates needle tip projecting lateral to the left and right femur necks. Additional needle tip lateral to right greater trochanter. Small amount of contrast injected for all needle tip placement. Correlate with intraoperative findings/report.
== END 2023-03-12 12:58 | disposition home or self-care (01) ==
LOC: SDC-PAIN 10:40
PROVIDERS: ATTEND Psychiatry & Neurology Pain Medicine
DX: M16.0 Bilateral primary osteoarthritis of hip (principal); M70.61 Trochanteric bursitis, right hip; Z79.899 Other long term (current) drug therapy
CPT/HCPCS: 20610; 73521; 77002; 81025; J1030; J2250; J2704; Q9966